=== PATIENT | female | born 1980 | race Caucasian/White ===

== ENCOUNTER 2019-07-05 17:28 | Emergency (ER) | payer SELFPAY ==
[~2019-07-05] VITALS: Ht 170.2 cm; Wt 145.4 kg
[2019-07-05] MEDS ORDERED: SILVER SULFADIAZINE 1% 25 GM CREAM TP ONE (18:30)
[2019-07-05] MEDS ORDERED: IBUPROFEN 600 MG TABLET PO ONE (18:45)
[2019-07-05 18:58] VITALS: BP 139/86
== END 2019-07-05 19:00 | disposition home or self-care (01) ==
LOC: EMS 17:30
DX: T22.231A Burn of second degree of right upper arm, initial encounter (principal); T22.211A Burn of second degree of right forearm, initial encounter; Z88.5 Allergy status to narcotic agent; X11.8XXA Contact with other hot tap-water, initial encounter; Y93.89 Activity, other specified; Y92.89 Other specified places as the place of occurrence of the external cause; Y99.8 Other external cause status
CPT/HCPCS: 16020